=== PATIENT | male | born 1945 | race Caucasian/White ===

== ENCOUNTER 2017-08-19 00:14 | Observation (INO) | payer MEDICARE, OTHER ==
[2017-08-18 15:01] LABS: INR 0.98
[2017-08-19] VITALS (12 sets, daily range): BP systolic 109–131; BP diastolic 66–85
[~2017-08-19] VITALS: Ht 172.7 cm; Wt 79.8 kg
[~2017-08-19 00:14] MED LIST: ALLO-119 PO; FAM20 PO; FAMO20TA28 PO; HYDR-385 PO; IBU600 PO; IBUP-2708 PO; LEV500 PO; LEVO-85 PO; LISI20TA29 PO; LOR5/325 PO; MV-M1TAB38 PO; PHEN-529 PO; PHENA200 PO; VIT1CAPS33 PO
[2017-08-19] MEDS ORDERED: fentaNYL CITR 100 MCG/2 ML AMP ONE (08:58)
[2017-08-19] MEDS ORDERED: DEXAMETHASONE SOD 4 MG/ML VIAL ONE (08:58)
[2017-08-19] MEDS ORDERED: ONDANSETRON 4 MG/2 ML VIAL ONE (08:58)
[2017-08-19] MEDS ORDERED: LIDOCAINE MPF 1% 5 ML VIAL ONE (08:58)
[2017-08-19] MEDS ORDERED: PROPOFOL EMUL(*) 10MG/ML 20 ML 20 ML ONE (08:58)
[2017-08-19] MEDS ORDERED: ACETAMINOPHEN(*)1000 MG/100 ML 100 ML IVPB ONE (09:06)
[2017-08-19] MEDS ORDERED: KETAMINE HCL 200 MG/20 ML MDV ONE (10:30)
[2017-08-19] MEDS ORDERED: NORMOSOL R SOLN(*) 1000 ML BAG 1,000 ML IV PRN (10:45)
[2017-08-19] MEDS ORDERED: LIDOCAINE/SOD BICARB 8.4% SYR ID ONE (10:45)
[2017-08-19] MEDS ORDERED: BACITRACIN 50000 UNIT/VIAL 100,000 UNIT in NS 0.9% 3000 ML IRRIGATION BAG 3,000 ML IR ONE (10:45)
[2017-08-19] MEDS ORDERED: TRANEXAMIC AC 1000 MG/10ML SDV 1,000 MG in DEXTROSE 5% 50 ML BAG 50 ML IV ONE (10:45)
[2017-08-19] MEDS ORDERED: ceFAZolin(*) 2GM/D5W 50ML 50 ML IVPB ONE (10:45)
[2017-08-19] MEDS ORDERED: cloNIDine EPIDUR INJ 100MCG/ML 40 MCG, ROPIVACAINE 0.5% 20 ML VIAL 25 ML, EPINEPHrine H... EPI ONE (10:45)
[2017-08-19] MEDS ORDERED: FAMOTIDINE 20 MG TAB PO ONE (10:45)
[2017-08-19] MEDS ORDERED: MIDAZOLAM 2 MG/2 ML VIAL IVP PRN (10:45)
[2017-08-19] MEDS ORDERED: ONDANSETRON 4 MG/2 ML VIAL IVP PRN (12:30)
[2017-08-19] MEDS ORDERED: LR 1000 ML BAG 1000 ML IV PRN (12:30)
[2017-08-19] MEDS ORDERED: diphenhydrAMINE 25 MG CAP PO PRN (12:30)
[2017-08-19] MEDS ORDERED: MAGNESIUM HYDROXIDE* 30ML UDCP PO PRN (12:30)
[2017-08-19] MEDS ORDERED: diphenhydrAMINE 50 MG/ML VIAL IVP PRN (12:30)
[2017-08-19] MEDS ORDERED: BISACODYL 10 MG SUPP PR PRN (12:30)
[2017-08-19] MEDS ORDERED: ZOLPIDEM TARTRATE 5 MG TAB PO PRN (12:30)
[2017-08-19] MEDS ORDERED: HYDROmorphone HCL 2 MG/ML SDV IVP PRN (12:30)
[2017-08-19] MEDS ORDERED: MAGNESIUM CITRATE 300 ML BTL PO PRN (12:30)
[2017-08-19] MEDS ORDERED: FLUSH 10 ML SYR IVP PRN (12:30)
[2017-08-19] MEDS ORDERED: PROMETHAZINE 25 MG/ML 1 ML AMP IVP PRN (12:30)
[2017-08-19] MEDS ORDERED: COLC0.6C3 PO (13:40)
--- NOTE | 2017-08-19 13:55 | Hospitalist Progress Note ---
Subjective Progress Notes Subjective The patient is a 71 year old male who is s/p L TKA earlier today with Dr. Chiang. The patient is doing well postoperatively. Per review of the anesthesia record, the lowest BP recorded for the patient during the procedure was 80/50. Estimated blood loss was 125cc. The patient's PMH is significant for DJD, HTN, prostate CA and gout. PSH is significant for prostatectomy. Physical Exam Vital Signs Date Time Temp Pulse Resp B/P (MAP) Pulse Ox O2 Delivery O2 Flow Rate FiO2 08/19/17 13:30 97.5 71 12 109/66 (80) 95 Nasal Cannula 2.0 Intake and Output 08/20/17 07:00 Intake Total 1800 ml Output Total 625 ml Balance 1175 ml Intake IV Total 1800 ml Output Urine Total 500 ml Estimated Blood Loss 125 ml General Appearance: Alert, Awake, No Acute Distress Neuro: No Gross deficits Eyes: PERRLA Cardiovascular: Regular Rate and Rhythm Respiratory: Clear to Auscultation GI: Soft and Non-Tender Extremities: Warm, Perfused Integumentary: Other (L knee with bandaged wound over knee.) Psych: Alert & Oriented X3, Appropriate Mood & Affect Assessment and Plan Problems: (1) S/P total knee arthroplasty Status: Acute Assessment & Plan: Doing well postoperatively. See Dr. Chiang's notes for complete details regarding the procedure. The patient will be on ASA 325mg daily for DVT prophylaxis. (2) HTN (hypertension) Status: Chronic Assessment & Plan: Continue lisinopril with parameters. (3) Gout Status: Chronic Assessment & Plan: Continue allopurinol 100mg daily. The patient uses colchicine 0.6mg bid for acute attacks. Time Spent on Plan of Care: < 30 min Problem Qualifiers (1) S/P total knee arthroplasty: Laterality: left Qualified Codes: Z96.652 - Presence of left artificial knee joint RAJINDER BALL MD Aug 19, 2017 13:55
[2017-08-19] MEDS ORDERED: ALLO100T70 PO (13:58)
--- NOTE | 2017-08-19 14:10 | RADIOLOGY IMAGING REPORT ---
FACILITY: [facility] PATIENT NAME: Sean Aquino : 1945 MR: [id number] V: [id number] EXAM DATE: ORDERING PHYSICIAN: DC NARVAEZ TECHNOLOGIST: [facility] Patient: Sean Aquino : 1945 Visit/Account:[id number] Date of Sevice: 08/19/2017 Left knee Indication: Post arthroplasty Comparison: None available Findings: Two views left knee are submitted. There is a left total knee arthroplasty. Alignment is anatomic. Components are well seated. Expected soft tissue changes. Air is noted within the joint. IMPRESSION: 1. Left total knee arthroplasty with expected findings. Report Dictated By: Brandon Wooten MD at 08/19/2017 1:34 PM Report E-Signed By: Brandon Wooten MD at 08/19/2017 2:06 PM WSN:[id number]
[2017-08-19] MEDS: ceFAZolin 1 GM VIAL IVPB SCH (17:58)
[2017-08-19] MEDS ORDERED: ASPIRIN 325 MG TAB PO SCH (21:00)
[2017-08-20] MEDS: ceFAZolin 1 GM VIAL IVPB SCH ×2 (01:40→10:40)
[2017-08-20 01:41] VITALS: BP 106/63
[2017-08-20 08:17] VITALS: BP 121/74
[2017-08-20] MEDS ORDERED: ALLOPURINOL 100 MG TAB PO SCH (09:00)
[2017-08-20] MEDS ORDERED: LISINOPRIL 20 MG TAB PO SCH (09:00)
[2017-08-20] MEDS ORDERED: BETA-CAROTENE(A) & E/MIN TAB PO SCH (09:00)
[2017-08-20] MEDS ORDERED: ASPI-757 PO (10:13)
[2017-08-20 10:23] VITALS: Ht 172.7 cm; Wt 79.8 kg
[2017-08-20] MEDS ORDERED: OXYC-865 PO (11:22)
[2017-08-20 12:46] VITALS: BP 126/82
--- NOTE | 2017-08-20 13:37 | OPERATIVE REPORT 1 ---
EVENT DATE: August 19, 2017 SURGEON: Luis Chiang MD ANESTHESIOLOGIST: Anand Kiser MD ANESTHESIA: General plus spinal. CHASER HELPER: KIKE Martínez PREOPERATIVE DIAGNOSIS Left knee osteoarthritis. POSTOPERATIVE DIAGNOSIS Left knee osteoarthritis. PROCEDURE Left total knee arthroplasty. FINDINGS The patient had arthritic changes throughout the knee, but was amenable for a knee replacement. ESTIMATED BLOOD LOSS About 250 mL. DRAINS None. COMPLICATIONS None. TOURNIQUET TIME About 16 minutes. It was up just for cementation. IMPLANTS DePuy #5 Attune femoral posterior stabilized size 6 left cemented femur with a 6 rotating platform, tibial plate and a 6 x 7 mm tibial insert and a 35 anatomic patella. SPECIMENS None. INDICATIONS AND HISTORY This patient is a 71-year-old male who presented to my clinic for evaluation of knee pain going for some time on the left knee. He continued to have pain and irritation despite conservative management, and therefore he wanted to go ahead with a total knee arthroplasty, since he had failed all conservative measures, and so therefore we talked to him about the implications of this as well as treatment options associated with this, and also the implications associated with a total knee arthroplasty and the major surgery associated with it. After discussion of those risks and benefits, informed consent was obtained, and he wanted to go ahead with that today. DESCRIPTION OF PROCEDURE The patient was brought into the operating room, he and the procedure were both verified. He was placed supine on the operative table and induced and given a spinal by Anesthesia and then intubated. The left lower extremity was then prepped and draped in the usual fashion, and a time out was observed, verifying the correct patient and procedure. The standard incision was then made over the anterior aspect of the knee. It was taken through the skin and subcutaneous tissue. I was then able to go through down to the medial parapatellar approaching, and utilizing a medial parapatellar approach, I was then able to go down into the knee. I then removed the patellar fat pad as well as some of the synovitis up on the superior aspect of the knee just above the cartilage of the femur. Once I was able to do this, I was then able to remove some of the anterior menisci, both the medial and lateral menisci, and was then able to remove some of the MCL on the inside of the knee in order to gain good access to the knee. I then everted the patella, and then flexed the knee up into high flexion. I was then able to remove the rest of the menisci and also some of the osteophytes in the inner portion of the knee. I then removed the central pivot with the ACL and the PCL, and I then proceeded to drill the central guide for the intramedullary guide for the Attune system. I then put in the Attune 5 and 9 intramedullary guide and then cut off the distal aspects of the distal femur. This was then followed by placement of the sizing block, and then the sizing block sized to about a 6, and so therefore we then put in the two pins and then put in the 4-in-1 cutting block. After cutting the 4-in-1 cutting block cut, everything looked pretty good, and so therefore we put on the notch block and cut the notch without any difficulty. I was then able to dress the tibia after removing some of the posterior osteophytes. I then subluxed the tibia anteriorly with a high flexion moment. I then was able to remove the rest of the posterior menisci on the medial and lateral sides, and then after resecting a portion of the tibia, I then removed a little bit more of that and also the remainder of the PCL. We then drilled the central portion of the tibia to go intramedullary, and then using the intramedullary guide, I was then able to place the standard cutting guide set on 0 for the built in slope, and then took 3 mm off the medial side, which she had worn out pretty well. Once I did this, I then was able to remove the entire tibial block. I then was able to make sure that it was nice and straight all the way across and flat and amenable for the tibial surface. I then prepped the tibial surface without any difficulty, sized it to a 6, and then was able to put in the trial components. Once all the trial components were in, I had good flexion and extension with the knee, but the 5 seemed a little bit too loose. We then trialed the 6, then finally the 7, which had the best stability, and so therefore this was the final component chosen with the rotating platform. I then everted the patella again, and then was able to cut the patella about 9.5 mm off the patella, and cut it to an anatomical position. The 35 anatomic patella seemed to fit best, and so therefore we drilled the holes for this and put in the trial, and it tracked without any difficulty associated with this, and so this was the final component chosen. I then inflated the tourniquet after putting an Esmarch on the leg. I then irrigated with copious amounts of saline, removed all of the instrumentation, irrigated again, put in the pain cocktail, and then was able to cement in the final components with the 6 tibia first, and then the 6 femur, followed by the 6 x 7 insert, and then the 35 patella. Once the cement hardened, I was then able to flex and extend without any difficulty, and everything tracked well and had good stability. I then closed the medial parapatellar approach with a #1 Stratafix. This was then followed by 2-0 Stratafix in the subcutaneous tissue and a subcuticular 4-0 running Monocryl with the ends buried and a Bioclusive dressing over the top. The patient was awakened, extubated and transferred to the PACU instable condition. Once again, the tourniquet was deflated after 16 minutes, as it was only up during cementation of the components. BRAXTON
== END 2017-08-20 14:38 | disposition home or self-care (01) ==
LOC: OR 00:14 → MED 13:27 → INTOOBSV 13:27 → MED 13:27 → UNDOADMOB 13:27 → UNDODISOB 08-20 14:38
PROVIDERS: ADMIT Orthopaedic Surgery; ATTEND Orthopaedic Surgery
DX: M17.12 Unilateral primary osteoarthritis, left knee (principal); I10 Essential (primary) hypertension; E78.5 Hyperlipidemia, unspecified; M10.9 Gout, unspecified
CPT/HCPCS: 27447; 36415; 73560; 85014; 85018; 85610; 86850; 86900; 86901; 97116; 97161; 97530; A9270; C1713; C1776; G0378; J0131; J0171; J0690; J0735; J1100; J1885; J2001; J2250; J2405; J2704; J2795; J3010; J3490; J7050; J7060; J7120; 82310; 82374; 82435; 82565; 82947; 84132; 84295; 84520